=== PATIENT | female | born 1975 | race Two or more races ===

== ENCOUNTER 2020-09-19 07:00 | Inpatient (IN) | payer OTHER ==
[~2020-09-19] VITALS: Ht 162.6 cm; Wt 68.0 kg
== END 2020-09-29 12:37 | disposition home or self-care (01) | DRG 743 ==
LOC: SURH 09-26 07:00 → OB/GYN 09-26 12:02 → O/R 09-26 12:02 → SURH 09-26 13:15 → OB/GYN 09-27 00:46
PROVIDERS: ADMIT Obstetrics & Gynecology; ATTEND Obstetrics & Gynecology
PROC: 0UB70ZZ Excision of Bilateral Fallopian Tubes, Open Approach (ICD-10-PCS; 2020-09-26)
PROC: 0UT90ZZ Resection of Uterus, Open Approach (ICD-10-PCS; principal; 2020-09-26 13:15)
DX: D25.0 Submucous leiomyoma of uterus (principal); N80.0 Endometriosis of uterus; N72 Inflammatory disease of cervix uteri; N93.8 Other specified abnormal uterine and vaginal bleeding; N83.8 Other noninflammatory disorders of ovary, fallopian tube and broad ligament